=== PATIENT | female | born 1975 | race African-American/Black ===

== ENCOUNTER → 2018-09-28 | Outpatient (CLI) | payer OTHER ==
--- NOTE | 2018-09-28 13:37 | Diagnostic Imaging Report ---
MRI SPINE CERVICAL WO HISTORY: Neck and left shoulder pain; numbness and tingling; left arm weakness COMPARISON: None. TECHNIQUE: Sagittal T1, sagittal T2, sagittal inversion recovery, axial T2 and axial T2 GRE weighted MR images of the cervical spine were obtained without intravenous contrast. DISCUSSION: Alignment: Straightening of the cervical lordosis. No scoliosis. Vertebrae: No definite evidence for fractures, infection, or neoplasm. Cervicomedullary junction: No abnormalities. Spinal cord: Normal in signal and morphology from the foramen magnum through T3-T4. Soft tissues: No signal abnormalities. Mild multilevel cervical disc degeneration is most prominent at C5-C6. C2-C3: Patent canal and foramina. C3-C4: Patent canal and foramina. C4-C5: Patent canal and foramina. C5-C6: Mild canal stenosis due to posterior disc osteophyte complex. Mild bilateral foraminal stenoses due to uncovertebral and facet arthrosis. C6-C7: Mild canal stenosis due to left-sided posterior disc osteophyte complex that abuts the left ventral thecal sac. Mild right and moderate left foraminal stenoses due to uncovertebral and facet arthrosis. C7-T1: Minimal grade 1 anterolisthesis of C7 on T1 due to mild facet arthrosis, right greater than left. Mild right foraminal stenosis due to uncovertebral and facet arthrosis. No significant left foraminal stenosis. IMPRESSION: 1. Mild multilevel cervical disc degeneration, most prominent at C5-C6. 2. Minimal grade 1 anterolisthesis of C7 on T1 due to mild facet arthrosis, right greater than left. 3. Mild degenerative canal stenoses at C5-C6 and C6-C7. 4. Multilevel bilateral degenerative foraminal stenoses - moderate on the left at C6-C7. Signed by: Dr. Nacho Craig M.D. on 09/28/2018 1:33 PM
== END ==
LOC: MRI 11:49
PROVIDERS: ATTEND Family Medicine
DX: M54.2 Cervicalgia (principal); S13.9XXA Sprain of joints and ligaments of unspecified parts of neck, initial encounter; M53.82 Other specified dorsopathies, cervical region
CPT/HCPCS: 72141